=== PATIENT | male | born 1980 | race Caucasian/White ===

== ENCOUNTER → 2017-12-19 | Day surgery (SDC) | payer OTHER ==
[~2017-12-19] VITALS: Ht 170.2 cm; Wt 68.0 kg
--- NOTE | 2017-12-19 16:32 | Operative Report ---
Operative/Inv Procedure Report Surgery Date: 12/19/17 Name of Procedure: Excision dysplastic lesion left posterior calf Excision lesion dysplastic nevus mid upper back upper back 2.2 cm left leg 1.6 cm complex closure back 3 cm intermediate layered closure leg 2 cm Pre-Operative Diagnosis: dysplastic nevi Post-Operative Diagnosis: Same Estimated Blood Loss: scant Surgeon/Property Economist: Dimitris TAYLOR,Michael Vasquez Anesthesia: moderate sedation Operative/Procedure Note Note: She was counseled regards to the procedure the alternatives the risks and expected outcomes as relates to his request for surgical intervention to treat 2 biopsy-proven dysplastic nevi of the left calf and the back. The patient identified the lesions talked about the risks including infection bleeding pain numbness recurrence the additional surgery based on final pathology symptomatic or unsightly scar. He was taken to the operative placed supine on the table intravenous sedation antibiotics were given in the back and left leg posterior calf is prepped and draped in usual sterile fashion the right side down position. Excisions were carried around lesions for the dimensions described above full-thickness into the subcutaneous tissue. Extensive undermining was carried out in the back to provide 2 layer tension-free closure for the dimensions described above. 2 layer closure was performed of the left calf the dimensions described above. Steri-Strips were applied. End dictation
== END ==
LOC: STS 00:55
DX: D23.5 Other benign neoplasm of skin of trunk (principal); D23.72 Other benign neoplasm of skin of left lower limb, including hip
CPT/HCPCS: J0690; J2250